=== PATIENT | male | born 1945 | race Caucasian/White ===

== ENCOUNTER 2018-06-08 11:05 | Emergency (ER) | payer MEDICARE, SELFPAY ==
[2018-06-08 11:16] VITALS: BP 131/73; PULSE 73; RESP 18; TEMP 36.4; O2SAT 97
--- NOTE | 2018-06-08 12:11 | ED.SKABFB ---
HPI - Skin/Abscess/Foreign Bdy <JUS Bishop - Last Filed: 06/08/18 20:55> General Chief complaint: Skin/Abscess/Foreign Body Stated complaint: POSS INFEC ON LEFT ARM Time Seen by Provider: 06/08/18 11:52 Source: patient Mode of arrival: ambulatory Limitations: no limitations History of Present Illness HPI narrative: 72-year-old male here for complaint of having a lesion to his left forearm area over the past 10 days. He denies any trauma to the area. He he states that he was concerned of infection and wanted to be checked out before he returned back home to [place] here in the next few weeks. No fevers no chills. Denies any drainage from the area. He denies any other concerns or complaints at this time. He states he does have some tenderness to the area but he states he also has caught the lesion a couple times on edges MD complaint: lesion Related Data Home Medications Medication Instructions Recorded Confirmed aspirin 81 mg PO QPM #0 04/19/17 06/08/18 atorvastatin 40 mg PO BEDTIME #0 04/19/17 06/08/18 ranitidine HCl 150 mg PO BID #0 04/19/17 06/08/18 [id number]-agk-TD-lycopen-lutein 1 tab PO DAILY 06/08/18 06/08/18 [Centrum Silver] Allergies Allergy/AdvReac Type Severity Reaction Status Date / Time No Known Allergies Allergy Uncoded 02/03/18 12:37 Review of Systems <JUS Bishop - Last Filed: 06/08/18 20:55> Constitutional Denies chills, Denies fever(s), Denies lethargy and Denies weakness Eyes Denies change in vision, Denies eye discharge, Denies irritation and Denies loss of vision ENT Ears, Nose, Mouth, and Throat: Denies change in voice, Denies neck pain and Denies sore throat Cardiovascular Denies chest pain, Denies irregular heart rhythm, Denies lightheadedness, Denies palpitations, Denies dyspnea, Denies dyspnea on exertion and Denies orthopnea Respiratory Denies cough, Denies dyspnea, Denies dyspnea on exertion and Denies wheezing Gastrointestinal Gastrointestinal: Denies abdominal pain, Denies change in bowel habits, Denies diarrhea, Denies nausea and Denies vomiting Genitourinary Denies hematuria, Denies flank pain, Denies urinary incontinence and Denies urinary urgency Musculoskeletal Denies neck pain Integumentary/Breasts Denies pruritus, Denies erythema, Denies rash and Denies wounds Comments: Lesion left forearm Neurologic Denies confusion, Denies loss of vision and Denies weakness Psychiatric Denies anxiety, Denies confusion, Denies depression, Denies homicidal ideation and Denies suicidal ideation Endocrine Denies palpitations Allergic/Immunologic Denies wheezing Exam <JUS Bishop - Last Filed: 06/08/18 20:55> Initial Vital Signs Initial Vital Signs: Vital Signs Temperature 97.6 F 06/08/18 11:16 Pulse Rate 73 06/08/18 11:16 Respiratory Rate 18 06/08/18 11:16 Blood Pressure 131/73 H 06/08/18 11:16 Pulse Oximetry 97 06/08/18 11:16 Const General: cooperative and well developed Nutritional Appearance: well nourished Orientation: alert, awake, oriented x3 and not confused HENMT Mouth: oral mucosae normal and moist mucous membranes Eyes Conjunctivae: conjunctivae normal Sclera: sclerae normal Pupils: PERRL EOM: EOM intact bilaterally Resp Effort & Inspection: normal respiratory effort, able to speak in complete sentences, no respiratory distress and no use of accessory muscles Auscultation: clear to auscultation bilaterally, no rales, no rhonchi and no wheezes Cardio Rate: regular rate Rhythm: regular rhythm Heart Sounds: no click, no gallops, murmur and no rubs Pulses: normal peripheral pulses Skin Other: 8 mm purplish papules to the left forearm area. Margins are slightly irregular. No surrounding erythema. No induration no fluctuance. Neuro General: alert, oriented x3, gait normal and no focal motor deficits Speech: speech normal <Hari Zamora DO - Last Filed: 06/09/18 19:29> Initial Vital Signs Initial Vital Signs: Vital Signs Temperature 97.6 F 06/08/18 11:16 Pulse Rate 73 06/08/18 11:16 Respiratory Rate 18 06/08/18 11:16 Blood Pressure 131/73 H 06/08/18 11:16 Pulse Oximetry 97 06/08/18 11:16 Course <JUS Bishop - Last Filed: 06/08/18 20:55> Vital Signs - 8 hr 06/08/18 14:51 Pulse Rate 66 Respiratory Rate 13 Blood Pressure [Right Arm] 142/87 H Pulse Oximetry 100 <Hari Zamora DO - Last Filed: 06/09/18 19:29> Vital Signs - 8 hr 06/08/18 14:51 Pulse Rate 66 Respiratory Rate 13 Blood Pressure [Right Arm] 142/87 H Pulse Oximetry 100 MDM - Skin/Abscess/Foreign Bdy <JUS Bishop - Last Filed: 06/08/18 20:55> [facility] Narrative Medical decision making narrative: Papule to the left forearm area does not appear to be infectious. Unknown etiology however is suspicious due to irregular margins. Recommend that he follows up with restaurant crew when he returns home for further evaluation and biopsy. [id number] Tylenol Motrin as needed for any discomfort. Cover area with bandage to prevent catching it on objects. For any worsening symptoms or signs of infection return emergency room. Discharge Plan Departure Patient Disposition: Home, Self-Care Clinical Impression: Skin lesion of left arm Discharge Date/Time: 06/08/18 14:56 Interventions: ED Discharge Assessment Last Done: 06/08/18 14:57 Instructions: How to Perform a Skin Exam Activity Restrictions/Additional Instructions: Lesion to left forearm does not appear to be infectious at this time. Lesion does have irregular margins recommend that she follow up with Dermatology on return to home re-evaluation and determine if excision and biopsy is warranted. Use [id number] Tylenol Motrin as needed for any discomfort. If any worsening symptoms in the meantime such as infection or other concerns return to the emergency room. Keep wound area covered to prevent catching on objects. Prescriptions: No Action ranitidine HCl 150 MG tablet 150 mg PO BID Qty: 0 RF: 0 atorvastatin 40 MG tablet 40 mg PO BEDTIME Qty: 0 RF: 0 aspirin 81 MG tablet,chewable 81 mg PO QPM Qty: 0 RF: 0 twpocqsu-qcc-WB-lycopen-lutein [Centrum Silver] 0.4-300-250 mg-mcg-mcg Tablet 1 tab PO DAILY RF: 0 Referrals: [facility] [Provider Group] Provider,Conversion [Non-Staff] - <Hari Zamora DO - Last Filed: 06/09/18 19:29> Cosign ED Attending Cosignature Attestation: I was available for consultation during this patient's emergency department encounter
--- NOTE | 2018-06-08 14:50 | ED_ITS ---
HPI - Skin/Abscess/Foreign Bdy <JUS Bishop - Last Filed: 06/08/18 20:55> General Chief complaint: Skin/Abscess/Foreign Body Stated complaint: POSS INFEC ON LEFT ARM Time Seen by Provider: 06/08/18 11:52 Source: patient Mode of arrival: ambulatory Limitations: no limitations History of Present Illness HPI narrative: 72-year-old male here for complaint of having a lesion to his left forearm area over the past 10 days. He denies any trauma to the area. He he states that he was concerned of infection and wanted to be checked out before he returned back home to [place] here in the next few weeks. No fevers no chills. Denies any drainage from the area. He denies any other concerns or complaints at this time. He states he does have some tenderness to the area but he states he also has caught the lesion a couple times on edges MD complaint: lesion Related Data Home Medications Medication Instructions Recorded Confirmed aspirin 81 mg PO QPM #0 04/19/17 06/08/18 atorvastatin 40 mg PO BEDTIME #0 04/19/17 06/08/18 ranitidine HCl 150 mg PO BID #0 04/19/17 06/08/18 yqqgmaak-cys-PW-lycopen-lutein 1 tab PO DAILY 06/08/18 06/08/18 [Centrum Silver] Allergies Allergy/AdvReac Type Severity Reaction Status Date / Time No Known Allergies Allergy Uncoded 02/03/18 12:37 Review of Systems <JUS Bishop - Last Filed: 06/08/18 20:55> Constitutional Denies chills, Denies fever(s), Denies lethargy and Denies weakness Eyes Denies change in vision, Denies eye discharge, Denies irritation and Denies loss of vision ENT Ears, Nose, Mouth, and Throat: Denies change in voice, Denies neck pain and Denies sore throat Cardiovascular Denies chest pain, Denies irregular heart rhythm, Denies lightheadedness, Denies palpitations, Denies dyspnea, Denies dyspnea on exertion and Denies orthopnea Respiratory Denies cough, Denies dyspnea, Denies dyspnea on exertion and Denies wheezing Gastrointestinal Gastrointestinal: Denies abdominal pain, Denies change in bowel habits, Denies diarrhea, Denies nausea and Denies vomiting Genitourinary Denies hematuria, Denies flank pain, Denies urinary incontinence and Denies urinary urgency Musculoskeletal Denies neck pain Integumentary/Breasts Denies pruritus, Denies erythema, Denies rash and Denies wounds Comments: Lesion left forearm Neurologic Denies confusion, Denies loss of vision and Denies weakness Psychiatric Denies anxiety, Denies confusion, Denies depression, Denies homicidal ideation and Denies suicidal ideation Endocrine Denies palpitations Allergic/Immunologic Denies wheezing Exam <JUS Bishop - Last Filed: 06/08/18 20:55> Initial Vital Signs Initial Vital Signs: Vital Signs Temperature 97.6 F 06/08/18 11:16 Pulse Rate 73 06/08/18 11:16 Respiratory Rate 18 06/08/18 11:16 Blood Pressure 131/73 H 06/08/18 11:16 Pulse Oximetry 97 06/08/18 11:16 Const General: cooperative and well developed Nutritional Appearance: well nourished Orientation: alert, awake, oriented x3 and not confused HENMT Mouth: oral mucosae normal and moist mucous membranes Eyes Conjunctivae: conjunctivae normal Sclera: sclerae normal Pupils: PERRL EOM: EOM intact bilaterally Resp Effort & Inspection: normal respiratory effort, able to speak in complete sentences, no respiratory distress and no use of accessory muscles Auscultation: clear to auscultation bilaterally, no rales, no rhonchi and no wheezes Cardio Rate: regular rate Rhythm: regular rhythm Heart Sounds: no click, no gallops, murmur and no rubs Pulses: normal peripheral pulses Skin Other: 8 mm purplish papules to the left forearm area. Margins are slightly irregular. No surrounding erythema. No induration no fluctuance. Neuro General: alert, oriented x3, gait normal and no focal motor deficits Speech: speech normal <Hari Zamora DO - Last Filed: 06/09/18 19:29> Initial Vital Signs Initial Vital Signs: Vital Signs Temperature 97.6 F 06/08/18 11:16 Pulse Rate 73 06/08/18 11:16 Respiratory Rate 18 06/08/18 11:16 Blood Pressure 131/73 H 06/08/18 11:16 Pulse Oximetry 97 06/08/18 11:16 Course <JUS Bishop - Last Filed: 06/08/18 20:55> Vital Signs - 8 hr 06/08/18 14:51 Pulse Rate 66 Respiratory Rate 13 Blood Pressure [Right Arm] 142/87 H Pulse Oximetry 100 <Hari Zamora DO - Last Filed: 06/09/18 19:29> Vital Signs - 8 hr 06/08/18 14:51 Pulse Rate 66 Respiratory Rate 13 Blood Pressure [Right Arm] 142/87 H Pulse Oximetry 100 MDM - Skin/Abscess/Foreign Bdy <JUS Bishop - Last Filed: 06/08/18 20:55> [facility] Narrative Medical decision making narrative: Papule to the left forearm area does not appear to be infectious. Unknown etiology however is suspicious due to irregular margins. Recommend that he follows up with wireless cellular technician when he returns home for further evaluation and biopsy. [id number]-vzyheoa Tylenol Motrin as needed for any discomfort. Cover area with bandage to prevent catching it on objects. For any worsening symptoms or signs of infection return emergency room. Discharge Plan Departure Patient Disposition: Home, Self-Care Clinical Impression: Skin lesion of left arm Discharge Date/Time: 06/08/18 14:56 Interventions: ED Discharge Assessment Last Done: 06/08/18 14:57 Instructions: How to Perform a Skin Exam Activity Restrictions/Additional Instructions: Lesion to left forearm does not appear to be infectious at this time. Lesion does have irregular margins recommend that she follow up with Dermatology on return to home re-evaluation and determine if excision and biopsy is warranted. Use [id number] Tylenol Motrin as needed for any discomfort. If any worsening symptoms in the meantime such as infection or other concerns return to the emergency room. Keep wound area covered to prevent catching on objects. Prescriptions: No Action ranitidine HCl 150 MG tablet 150 mg PO BID Qty: 0 RF: 0 atorvastatin 40 MG tablet 40 mg PO BEDTIME Qty: 0 RF: 0 aspirin 81 MG tablet,chewable 81 mg PO QPM Qty: 0 RF: 0 ruqncqro-wyz-JO-lycopen-lutein [Centrum Silver] 0.4-300-250 mg-mcg-mcg Tablet 1 tab PO DAILY RF: 0 Referrals: [facility] [Provider Group] Provider,Conversion [Non-Staff] - <Hari Zamora DO - Last Filed: 06/09/18 19:29> Cosign ED Attending Cosignature Attestation: I was available for consultation during this patient's emergency department encounter
[2018-06-08 14:51] VITALS: BP 142/87; PULSE 66; RESP 13; O2SAT 100
== END 2018-06-08 14:56 | disposition home or self-care (01) ==
PROVIDERS: Emergency Provider Nurse Practitioner Family
DX: L98.9 Disorder of the skin and subcutaneous tissue, unspecified (principal)
CPT/HCPCS: 99282